=== PATIENT | male | born 1960 | race Caucasian/White ===

== ENCOUNTER 2018-11-16 07:47 | Inpatient (IN) | payer MEDICAID, OTHER ==
[~2018-11-16] VITALS: Ht 185.4 cm; Wt 104.9 kg
--- NOTE | 2018-11-16 07:57 | NUR ---
BIB [facility] PITER C/O R SIDED CP STARTED 2 HRS AGO WORSE W/ DEEP BREATHS AND SEEMS TO GET WORSE. 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 STATES HE LIFTED A HEAVY LOAD TUESDAY. VSS NETWORKING ENGINEER NSR 70, 95% RA, BP 152/113. PT RESTING ON GURNEY. NADN. VSS. EKG COMPLETED. JADON MACK AT BEDSIDE.
[2018-11-16] MEDS ORDERED: KETOROLAC 30 MG/1 ML IM ONE (08:30)
[2018-11-16] MEDS ORDERED: CYCLOBENZAPRINE 10 MG TABLET PO ONE (08:30)
[2018-11-16] MEDS ORDERED: CYCLOBENZAPRINE 10 MG TABLET ONE (08:30)
[2018-11-16] MEDS ORDERED: KETOROLAC 30 MG/1 ML ONE (08:30)
--- NOTE | 2018-11-16 08:33 | NUR ---
PT RESTING ON GURNEY. NADN. BURGESS.
[2018-11-16 08:45] LABS: BASOPHILS # (AUTO) 0.03 x10^3/uL (0-0.1); BASOPHILS % (AUTO) 0 % (0-1); EOSINOPHILS # (AUTO) 0.15 x10^3/uL (0-0.4); EOSINOPHILS % (AUTO) 2 % (1-7); LYMPHOCYTES # (AUTO) 1.62 x10^3/uL (1-3.4); LYMPHOCYTES % (AUTO) 18 % (22-44); MD NO; MEAN CORPUSCULAR HEMOGLOBIN 26.4 pg (27.5-34.5); MEAN CORPUSCULAR HGB CONC 32.9 g/dL (33.2-36.2); MEAN CORPUSCULAR VOLUME 80.1 fL (81-97); MEAN PLATELET VOLUME 8.9 fL (7.4-10.4); MONOCYTES % (AUTO) 8 % (2-9); NEUTROPHILS # (AUTO) 6.72 x10^3/uL (1.8-6.8); NEUTROPHILS % (AUTO) 73 % (42-75); PLATELET COUNT 272 x10^3/uL (130-400); RED BLOOD COUNT 5.29 x10^6/uL (4.38-5.82); RED CELL DISTRIBUTION WIDTH 13.7 % (9.4-14.8)
--- NOTE | 2018-11-16 08:50 | NUR ---
REPORT GIVEN TO BENEDICT LEÓN.
--- NOTE | 2018-11-16 08:57 | NUR ---
Pt in bad, NAD. VSS. Addendum: 11/16/18 at 0857 by YUKI Pt in sera NAD. VSS.
[2018-11-16 08:58] LABS: ALANINE AMINOTRANSFERASE 30 U/L (12-78); ALBUMIN 3.3 g/dL (3.4-5.0); ANION GAP 5 mmol/L (5-15); CALCIUM 9.2 mg/dL (8.5-10.1); CHLORIDE 106 mmol/L (98-107); CREATININE 0.75 mg/dL (0.7-1.3)
[2018-11-16 09:02] LABS: ALKALINE PHOSPHATASE 131 U/L (45-117); BILIRUBIN,TOTAL 0.9 mg/dL (0.2-1.0); TOTAL PROTEIN 7.6 g/dL (6.4-8.2); TROPONIN I < 0.015 ng/mL (0.000-0.045)
[2018-11-16] MEDS ORDERED: SODIUM CHLORIDE FLUSH 10ML SYR IVF ONE (10:00)
[2018-11-16] MEDS ORDERED: OMNIPAQUE 350 MG/ML, 75ML BOTTLE ONE (10:26)
[2018-11-16] MEDS ORDERED: CEFTRIAXONE PMX 1GM/50ML 50 ML IVPB ONE (11:30)
--- NOTE | 2018-11-16 11:31 | NUR ---
THROUGHPUT RN: PT DIVERTED FROM [place] [address] CUNN[place]HAM. SPOKE W/ [facility] FROM [facility] WHO STATES THEY WILL NOT ACCEPT TRANSFER.
[2018-11-16] MEDS ORDERED: TRAZ-137 PO (12:01)
[2018-11-16] MEDS ORDERED: ERGO500017 PO (12:01)
[2018-11-16] MEDS ORDERED: GLIP10TA13 PO (12:01)
[2018-11-16] MEDS ORDERED: ATOR40TA PO (12:01)
[2018-11-16] MEDS ORDERED: AMLO10TA8 PO (12:01)
[2018-11-16] MEDS ORDERED: ASPI-515 PO (12:01)
[2018-11-16] MEDS ORDERED: SAXA5TAB PO (12:01)
[2018-11-16] MEDS ORDERED: LOSA25TA25 PO (12:01)
[2018-11-16] MEDS ORDERED: METF500T17 PO (12:01)
[2018-11-16] MEDS ORDERED: DICL50TA2 PO (12:01)
[2018-11-16] MEDS ORDERED: HYDROCHLOROTH12.5 MG PO (12:01)
[2018-11-16 12:28] VITALS: BP 139/90
[2018-11-16 14:13] VITALS: BP 139/90
[2018-11-16] MEDS ORDERED: ONDANSETRON 2MG/ML, 2ML IVPush PRN (14:30)
[2018-11-16] MEDS ORDERED: LABETALOL 5MG/ML, 20ML IVPush PRN (14:30)
[2018-11-16] MEDS ORDERED: hydrALAzine 20 MG/ML, 1ML IVPush PRN (14:30)
[2018-11-16] MEDS ORDERED: ACETAMINOPHEN 325 MG TABLET PO PRN (14:30)
[2018-11-16 14:37] LABS: HEMOGLOBIN A1C 7.7 % (4.2-6.3)
[2018-11-16] MEDS: CEFTRIAXONE PMX 1GM/50ML 50 ML IV SCH (16:43)
[2018-11-16] MEDS ORDERED: GLUCAGON 1 MG IM PRN (17:00)
[2018-11-16] MEDS ORDERED: ERGOCALCIFEROL 50,000 UNIT CAPSULE PO SCH (17:00)
[2018-11-16] MEDS ORDERED: TRAZODONE 100MG TABLET PO PRN (17:00)
[2018-11-16] MEDS ORDERED: DEXTROSE 50%, 50ML SYRINGE IVPush PRN (17:00)
[2018-11-16] MEDS ORDERED: DEXTROSE 4 GM TAB.CHEW PO PRN (17:00)
[2018-11-16 19:21] VITALS: BP 138/76
[2018-11-16] MEDS: INSULIN LISPRO 100 UNITS/ML, PEN SQ-INSULIN SCH (20:53)
[2018-11-16] MEDS ORDERED: ATORVASTATIN 40 MG TABLET PO SCH (21:00)
[2018-11-16] MEDS: SODIUM CHLORIDE FLUSH 10ML SYR IVF SCH (21:08)
[2018-11-16] MEDS: DICLOFENAC 50 MG TABLET.DR PO SCH (21:45)
[2018-11-16 22:59] LABS: RAPID INFLUENZA A Negative (Negative); RAPID INFLUENZA B Negative (Negative)
[2018-11-17] MEDS ORDERED: OXYcodone IR 5MG TABLET PO PRN
[2018-11-17] MEDS: METHOCARBAMOL 500 MG TABLET PO PRN ×2 (00:05→14:55)
[2018-11-17 04:45] VITALS: BP 113/70
[2018-11-17 05:15] LABS: BASOPHILS # (AUTO) 0.05 x10^3/uL (0-0.1); BASOPHILS % (AUTO) 1 % (0-1); EOSINOPHILS # (AUTO) 0.19 x10^3/uL (0-0.4); EOSINOPHILS % (AUTO) 3 % (1-7); LYMPHOCYTES # (AUTO) 1.42 x10^3/uL (1-3.4); LYMPHOCYTES % (AUTO) 19 % (22-44); MD NO; MEAN CORPUSCULAR HEMOGLOBIN 26.8 pg (27.5-34.5); MEAN CORPUSCULAR HGB CONC 33.5 g/dL (33.2-36.2); MEAN PLATELET VOLUME 9.2 fL (7.4-10.4); MONOCYTES # (AUTO) 0.53 x10^3/uL (0.2-0.8); MONOCYTES % (AUTO) 7 % (2-9); NEUTROPHILS # (AUTO) 5.38 x10^3/uL (1.8-6.8); NEUTROPHILS % (AUTO) 71 % (42-75); PLATELET COUNT 272 x10^3/uL (130-400); RED BLOOD COUNT 4.97 x10^6/uL (4.38-5.82); RED CELL DISTRIBUTION WIDTH 13.7 % (9.4-14.8)
[2018-11-17 05:23] LABS: ANION GAP 6 mmol/L (5-15); CALCIUM 8.8 mg/dL (8.5-10.1); CHLORIDE 106 mmol/L (98-107)
[2018-11-17 05:24] LABS: CREATININE 0.69 mg/dL (0.7-1.3)
[2018-11-17 07:26] VITALS: BP 136/80
[2018-11-17] MEDS ORDERED: TEMPLATE NON-FORMULARY MED. (Saxagliptin Hcl** (Onglyza**) 5 MG) PO SCH (09:00)
[2018-11-17] MEDS ORDERED: HYDROCHLOROTHIAZIDE 12.5 MG CAPSULE PO SCH (09:00)
[2018-11-17] MEDS ORDERED: LOSARTAN 50MG TABLET PO SCH (09:00)
[2018-11-17] MEDS: DICLOFENAC 50 MG TABLET.DR PO SCH (09:00)
[2018-11-17] MEDS ORDERED: AMLODIPINE 10 MG TAB PO SCH (09:00)
[2018-11-17] MEDS: SODIUM CHLORIDE FLUSH 10ML SYR IVF SCH (09:10)
[2018-11-17] MEDS: INSULIN LISPRO 100 UNITS/ML, PEN SQ-INSULIN SCH ×3 (09:10→16:39)
[2018-11-17] MEDS ORDERED: LIDOCAINE-MPF 1%, 5ML ONE (10:30)
[2018-11-17] MEDS ORDERED: FENTANYL PF 100 MCG/2ML ONE (11:27)
[2018-11-17] MEDS ORDERED: MIDAZOLAM 1 MG/ML, 5ML ONE (11:27)
[2018-11-17 12:25] VITALS: BP 103/66
[2018-11-17 14:40] VITALS: BP 114/73
[2018-11-17] MEDS: CEFTRIAXONE PMX 1GM/50ML 50 ML IV SCH (15:54)
[2018-11-17] MEDS ORDERED: CEFD300C37 PO (16:34)
== END 2018-11-17 18:45 | disposition home or self-care (01) | DRG 177 ==
LOC: ED 11:19 → EDIP 11:25 → 3NW 12:19
PROVIDERS: ADMIT Internal Medicine; ATTEND Internal Medicine
PROC: 0BBF3ZX Excision of Right Lower Lung Lobe, Percutaneous Approach, Diagnostic (ICD-10-PCS; principal; 2018-11-17)
DX: J15.6 Pneumonia due to other Gram-negative bacteria (principal); J96.00 Acute respiratory failure, unspecified whether with hypoxia or hypercapnia; J18.9 Pneumonia, unspecified organism; Z88.8 Allergy status to other drugs, medicaments and biological substances; Z91.048 Other nonmedicinal substance allergy status; E11.9 Type 2 diabetes mellitus without complications; E78.5 Hyperlipidemia, unspecified; I10 Essential (primary) hypertension; Z87.891 Personal history of nicotine dependence; R91.1 Solitary pulmonary nodule
CPT/HCPCS: 32405; 36415; 71045; 71046; 71260; 77012; 80048; 80053; 82962; 83036; 83605; 84145; 84484; 85025; 87040; 87400; 88305; 93005; 96372; 99156; 99157; 99285; G0378; J0696; J1885; J2250; J3010; Q9967; J1815